=== PATIENT | female | born 1965 | race Caucasian/White ===

== ENCOUNTER 2017-07-29 20:28 | Emergency (ER) | payer BC, OTHER ==
[~2017-07-29 20:28] MED LIST: BELVIQ PO
== END 2017-07-29 20:46 | disposition short-term general hospital (02) ==
LOC: ER 20:28
DX: Z53.21 Procedure and treatment not carried out due to patient leaving prior to being seen by health care provider (principal)

== ENCOUNTER 2017-07-31 17:05 | Emergency (ER) | payer BC ==
[~2017-07-31] VITALS: Ht 157.5 cm; Wt 98.9 kg
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
[2017-07-31] MEDS ORDERED: IBUPROFEN 600 MG TAB PO STA (17:24)
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
[2017-08-01 02:11] VITALS: BP 148/92
== END 2017-07-31 22:40 | disposition home or self-care (01) ==
LOC: ER 17:05
DX: S16.1XXA Strain of muscle, fascia and tendon at neck level, initial encounter (principal); V43.02XA Car driver injured in collision with other type car in nontraffic accident, initial encounter
CPT/HCPCS: 72050